=== PATIENT | female | born 1960 | race Caucasian/White ===

== ENCOUNTER 2017-02-10 23:03 | Emergency (ER) | payer OTHER ==
[~2017-02-10] VITALS: Ht 160 cm; Wt 87.0 kg
[~2017-02-10 23:03] MED LIST: HYDR-3498 PO; LEVO88TA PO; ONDA4TAB35 PO; synthroid PO
[2017-02-10 23:12] VITALS: Ht 160 cm; Wt 87.0 kg
[2017-02-11] MEDS ORDERED: METHYLPREDNISOLONE 125 MG INJ IM STA (06:10)
[2017-02-11] MEDS ORDERED: ACETAMINOPHEN 500 MG TAB PO STA (06:10)
[2017-02-11] MEDS ORDERED: ALBUTEROL 0.083% (NEB) 2.5 MG/3 ML AMP NEB STA ×2 (06:10→07:33)
--- NOTE | 2017-02-11 07:24 | RADRPT ---
PROCEDURE: XR Chest. CLINICAL INDICATION: Asthma exacerbation. Shortness of breath. TECHNIQUE: Single frontal chest x-ray. COMPARISON: Chest radiograph 12/31/2014. FINDINGS: The cardiomediastinal silhouette is unremarkable. There are bilateral low lung volumes with vascular crowding and mild bibasilar atelectasis. No pneum othorax, pleural effusion or consolidation is seen. There are multilevel mild degenerative changes of thoracic spine with decreased disk spaces and oste ophytosis. IMPRESSION: 1. Low lung volumes with compressive changes and mild bibasilar atelectasis. 2. Otherwise no acute cardiopulmonary abnormality. RPTAT: HFN .Chris Ward MD, Date Time Electronically viewed and signed by .Chris Ward MD, on 02/11/2017 07:24 .N/
--- NOTE | 2017-02-11 07:49 | ERD ---
ER Documentation Chief Complaint Date/Time DATE: 02/11/17 TIME: 07:49 Chief Complaint FEVER/HEADACHE X1 WEEK. STATES SINUS INFECTION. HPI This is a 56-year-old female without any relevant medical problems presenting to the emergency department with multiple complaints. Patient complaining of fever, headache, cough, shortness of breath for the past week. She denies any chest pain. Patient states that she has not taken medications today. She denies any vomiting or diarrhea. Denies any neuro deficit. ROS All systems reviewed and are negative except as per history of present illness. Medications Home Meds Active Scripts Amoxicillin/Potassium Clav (Amox-Clav 500-125 mg Tablet) 500-125 mg Tab, 1 TAB PO BID for 10 Days, TAB Prov:AURE GAITAN PA-C 02/11/17 Acetaminophen* (Tylenol*) 500 Mg Tab, 1000 MG PO Q6H Y for PAIN AND OR ELEVATED TEMP, #30 TAB Prov:AURE GAITAN PA-C 02/11/17 Prednisone* (Prednisone*) 20 Mg Tab, 40 MG PO DAILY for 4 Days, TAB Prov:AURE GAITAN PA-C 02/11/17 Albuterol Sulfate* (Proair HFA*) 8.5 Gm Hfa.aer.ad, 2 PUFF INH Q4H Y for WHEEZING AND SOB, #1 INHALER Prov:AURE GAITAN PA-C 02/11/17 Ondansetron Hcl* (Zofran* ODT) 4 mg -ODT Tab.disper, 4 MG PO Q6H Y for NAUSEA for 7 Days, TAB Prov:MELISA NIETO NP 08/25/14 Hydrocodone Bit-Acetaminophen* ([place]*) 5-325 Mg Tab, 1 TAB PO Q6H Y for PAIN for 7 Days, TAB Prov:MELISA NIETO NP 08/25/14 Levothyroxine Sodium* (Synthroid*) 88 Mcg Tab, 88 MCG PO DAILY@06 for 90 Days Prov:MELISA NIETO NP 08/25/14 Reported Medications [synthroid] No Conflict Check, 88 MCG PO DAILY 05/17/13 Allergies Allergies: Coded Allergies: No Known Allergy (Unverified , 04/26/14) PMhx/Soc History of Surgery: Yes (, THYROIDECTOMY, LEFT OVARY REMOVED) Anesthesia Reaction: No Hx Neurological Disorder: No Hx Respiratory Disorders: No Hx Cardiac Disorders: No Hx Psychiatric Problems: No Hx Miscellaneous Medical Probl: Yes (HYPOTHYROIDISM) Hx Alcohol Use: No Hx Substance Use: No Hx Tobacco Use: No Smoking Status: Never smoker Physical Exam Vitals Vital Signs Date Time Temp Pulse Resp B/P Pulse Ox O2 Delivery O2 Flow Rate FiO2 02/11/17 07:50 71 20 98 21 02/11/17 06:21 64 20 98 21 02/10/17 23:12 99.0 78 20 148/81 97 Physical Exam GENERAL: well-developed/well-nourished, in no apparent distress, non-toxic appearing HEAD: NC/AT, no swelling noted in frontal or maxillary areas EARS: bilateral tympanic membrane is intact without erythema or effusion NARES congested THROAT: oropharynx erythematous without exudates, no tonsil enlargement, post nasal drip EYES: Conjunctiva normal NECK: Supple, no lymphadenopathy PULM: Coarse breath sounds heard bilaterally with wheezing CV: Normal S1S2, RRR, good capillary refill GI: Soft, non-distended, normal bowel sounds, non-tender BACK: No midline tenderness, no masses EXT No clubbing, cyanosis, or edema NEURO: Alert and Orientated SKIN: Intact, normal turgor PSYCH: Normal mood and mentation Results 24 hrs Current Medications Medications (Trade) Dose Ordered Sig/Stacy Route PRN Reason Start Time Stop Time Status Last Admin Dose Admin Albuterol (Proventil 0.083% (Neb)) 5 mg ONCE STAT NEB 02/11/17 06:10 02/11/17 06:11 DC 02/11/17 06:18 Methylprednisolone Sodium Succinate (Solu-Medrol) 125 mg ONCE STAT IM 02/11/17 06:10 02/11/17 06:11 DC 02/11/17 06:34 Acetaminophen (Tylenol Tab) 1,000 mg ONCE STAT PO 02/11/17 06:10 02/11/17 06:11 DC 02/11/17 06:33 Albuterol (Proventil 0.083% (Neb)) 5 mg ONCE STAT NEB 02/11/17 07:33 02/11/17 07:35 DC 02/11/17 07:49 Procedures/MDM This is a 56-year-old female presenting to the emergency department complaining of fevers, nasal congestion, cough for 1 week likely due to a viral upper respiratory infection with bronchitis however patient will be empirically treated for bacterial sinusitis with Augmentin since she had more localized tenderness in her sinuses. I examination patient had wheezing and course breath sounds without any evidence of respiratory distress or pneumonia. RT was consulted and patient was given 2 treatments of albuterol with Solu-Medrol. Patient had improvement in symptoms. Patient has stable vital signs throughout the whole encounter and afebrile and stable for discharge. Chest x- ray did not show any evidence of infiltrates,radiologist stated low lung volumes with compressive changes and mild bibasilar atelectasis.. prescription for Augmentin for 10 days, pro-air, prednisone was provided. Discussed return to the ER for any worsening symptoms. Patient understands and agrees with the plan stable for discharge for home EKG: read and signed off by myself and Dr Rader Rate/Rhythm: Normal Sinus Rhythm 68bpm QRS, ST, T-waves: No changes consistent w/ acute ischemia Impression: No evidence of ischemia or arrhythmia Departure Diagnosis: Primary Impression: Acute sinusitis Additional Impression: Bronchitis Condition: Fair AURE GAITAN PA-C February 11, 2017 07:49
[2017-02-11] MEDS ORDERED: ALBU8.5H3 INH (07:51)
[2017-02-11] MEDS ORDERED: AZIT250T94 PO (07:51)
[2017-02-11] MEDS ORDERED: PRED20TA PO (07:51)
[2017-02-11] MEDS ORDERED: TYL500 PO (07:51)
[2017-02-11] MEDS ORDERED: AMOX1TAB9 PO (08:30)
== END 2017-02-11 08:34 | disposition home or self-care (01) ==
LOC: FTE 23:03
DX: J01.90 Acute sinusitis, unspecified (principal); J20.9 Acute bronchitis, unspecified; E03.9 Hypothyroidism, unspecified; R06.02 Shortness of breath
CPT/HCPCS: 71010; 93005; 94640; 94664; 96372; J2930; Z7502; Z7610

== ENCOUNTER → 2017-03-18 | Outpatient (CLI) | payer OTHER ==
[~2017-03-18] MED LIST changes: +ALBU8.5H3 INH; +ALBUTEROL 0.083% (NEB) 2.5 MG/3 ML AMP ONE; +AMOX1TAB9 PO; +PRED20TA PO; +TYL500 PO
== END | disposition home or self-care (01) ==
LOC: PUL 13:55
PROVIDERS: ATTEND Internal Medicine
DX: R06.02 Shortness of breath (principal)
CPT/HCPCS: 94060; 94726; 94729

== ENCOUNTER 2017-07-28 22:58 | Emergency (ER) | payer OTHER ==
[~2017-07-28] VITALS: Ht 165.1 cm; Wt 84.5 kg
[~2017-07-28 22:58] MED LIST changes: -ALBUTEROL 0.083% (NEB) 2.5 MG/3 ML AMP ONE
[2017-07-28 23:48] VITALS: Ht 165.1 cm; Wt 84.5 kg
[2017-07-29] MEDS ORDERED: KETOROLAC 30 MG INJ IM STA (04:19)
[2017-07-29] MEDS ORDERED: KETOROLAC 30 MG INJ ONE (04:21)
--- NOTE | 2017-07-29 05:06 | RADRPT ---
PROCEDURE: Right ankle. CLINICAL INDICATION: Pain. TECHNIQUE: Three views including AP, lateral and oblique views were performed. COMPARISON: None. FINDINGS: There is no fracture, dislocation or bone destruction. The ankle mortise is within normal limits. Bone mineralization is within normal limits. There is no radiopaque foreign body or abnormal calcif ication. There are dorsal and plantar calcaneal spurs. IMPRESSION: No evidence of fracture. Calcaneal spurs. .Oscar Ayala MD, Date Time Electronically viewed and signed by .Oscar Ayala MD, on 07/29/2017 05:06 .T/
--- NOTE | 2017-07-29 05:07 | RADRPT ---
PROCEDURE: Right knee. CLINICAL INDICATION: Pain. TECHNIQUE: Three views including AP, lateral and oblique views of the right knee were obtained. The images reviewed on a PACS workstation. COMPARISON: None. FINDINGS: There is no fracture, dislocation or bone destruction. There is no significant joint space narrowin g or effusion. There is spurring of the tibial spine. There are tiny marginal osteophytes present. T here is spurring of the patella. Bone mineralization is within normal limits. There is no radiopaqu e foreign body or abnormal calcification. IMPRESSION: No evidence of fracture. .Oscar Ayala MD, Date Time Electronically viewed and signed by .Oscar Ayala MD, on 07/29/2017 05:06 .T/
--- NOTE | 2017-07-29 05:25 | ERD ---
ER Documentation Chief Complaint Chief Complaint right knee oan x 3 days, +swelling Denies injury. Seen by urgent care today HPI 56-year-old female with a history of sciatica presents the emergency department for complaints of right-sided knee pain 3 days. Patient states that she tripped over a telephone cord twisted her right knee, then developed gradually worsening pain with swelling. She notes associated right-sided ankle pain and swelling. She states her knee pain is currently an 8 out of 10 throbbing pain which radiates up her right thigh to her posterior buttocks. She states similar pain previously due to sciatica. She denies any recent immobilization, surgery, cancer, chest pain or shortness of breath. She states she is able to ambulate but walking aggravates the pain. He denies fever, chills, nausea, vomiting, diarrhea, abdominal pain, flank pain, dysuria, hematuria or vaginal discharge. ROS All systems reviewed and are negative except as per history of present illness. Medications Home Meds Active Scripts Prednisone* (Prednisone*) 20 Mg Tab, 40 MG PO DAILY for 4 Days, TAB Prov:PAZ CONTE PA-C 07/29/17 Hydrocodone/Acetaminophen ([place] 5-325 Tablet) 1 Each Tablet, 1 TAB PO Q6H Y for PAIN, #10 TAB Prov:PAZ CONTE PA-C 07/29/17 Naproxen* (Naprosyn*) 500 Mg Tablet, 500 MG PO BID Y for PAIN AND/OR INFLAMMATION, #30 TAB Prov:PAZ CONTE PA-C 07/29/17 Amoxicillin/Potassium Clav (Amox-Clav 500-125 mg Tablet) 500-125 mg Tab, 1 TAB PO BID for 10 Days, TAB Prov:AURE GAITAN PA-C 02/11/17 Acetaminophen* (Tylenol*) 500 Mg Tab, 1000 MG PO Q6H Y for PAIN AND OR ELEVATED TEMP, #30 TAB Prov:AURE GAITAN PA-C 02/11/17 Prednisone* (Prednisone*) 20 Mg Tab, 40 MG PO DAILY for 4 Days, TAB Prov:AURE GAITAN PA-C 02/11/17 Albuterol Sulfate* (Proair HFA*) 8.5 Gm Hfa.aer.ad, 2 PUFF INH Q4H Y for WHEEZING AND SOB, #1 INHALER Prov:AURE GAITAN PA-C 02/11/17 Ondansetron Hcl* (Zofran* ODT) 4 mg -ODT Tab.disper, 4 MG PO Q6H Y for NAUSEA for 7 Days, TAB Prov:MELISA NIETO NP 08/25/14 Hydrocodone Bit-Acetaminophen* ([place]*) 5-325 Mg Tab, 1 TAB PO Q6H Y for PAIN for 7 Days, TAB Prov:MELISA NIETO NP 08/25/14 Levothyroxine Sodium* (Synthroid*) 88 Mcg Tab, 88 MCG PO DAILY@06 for 90 Days Prov:MELISA NIETO NP 08/25/14 Reported Medications [synthroid] No Conflict Check, 88 MCG PO DAILY 05/17/13 Allergies Allergies: Coded Allergies: No Known Allergy (Unverified , 04/26/14) PMhx/Soc History of Surgery: Yes (, THYROIDECTOMY, LEFT OVARY REMOVED) Anesthesia Reaction: No Hx Neurological Disorder: No Hx Respiratory Disorders: No Hx Cardiac Disorders: No Hx Psychiatric Problems: No Hx Miscellaneous Medical Probl: Yes (HYPOTHYROIDISM) Hx Alcohol Use: No Hx Substance Use: No Hx Tobacco Use: No Smoking Status: Never smoker Physical Exam Vitals Physical Exam Const:Well-developed, well-nourished, in mild distress Head: Atraumatic Eyes: Normal Conjunctiva ENT: Normal External Ears, Nose and Mouth. Neck: Full range of motion..~ No meningismus. Resp: Clear to auscultation bilaterally Cardio: Regular rate and rhythm, no murmurs Abd: Soft, non tender, non distended. Normal bowel sounds Skin: No petechiae or rashes Back: No midline or flank tenderness Ext: Mild, non-erythematous edema diffusely over the anterior right knee. No ecchymosis, surface trauma, or bony deformity. Diffuse swelling with slight ecchymosis across the lateral right ankle. Patient without crepitus at the knee or ankle. Full range of motion at knee and ankle actively and passively. Patient able to fully flex and extend that knee. Negative anterior, posterior drawer sign. Collateral ligaments without laxity. Distal sensation intact to light touch. Pedal pulses equal. Patient able to bear full weight and ambulate however reports pain. No erythema of the lower extremity. No calf swelling. Neur: Awake and alert Psych: Normal Mood and Affect Results 24 hrs Current Medications Medications (Trade) Dose Ordered Sig/Stacy Route PRN Reason Start Time Stop Time Status Last Admin Dose Admin Ketorolac Tromethamine (Toradol) 30 mg ONCE STAT IM 07/29/17 04:19 07/29/17 04:21 DC 07/29/17 04:27 Ketorolac Tromethamine (Toradol) 30 mg STK-MED ONCE .ROUTE 07/29/17 04:21 07/29/17 04:22 DC Acetaminophen/ Hydrocodone Bitart ([place] (5/325)) 1 tab ONCE ONCE PO 07/29/17 06:00 07/29/17 06:01 DC 07/29/17 05:54 Ondansetron HCl (Zofran Odt) 4 mg ONCE STAT ODT 07/29/17 05:44 07/29/17 05:45 DC 07/29/17 05:54 Procedures/MDM PROCEDURE: Right knee. CLINICAL INDICATION: Pain. TECHNIQUE: Three views including AP, lateral and oblique views of the right knee were obtained. The images reviewed on a PACS workstation. COMPARISON: None. FINDINGS: There is no fracture, dislocation or bone destruction. There is no significant joint space narrowing or effusion. There is spurring of the tibial spine. There are tiny marginal osteophytes present. There is spurring of the patella. Bone mineralization is within normal limits. There is no radiopaque foreign body or abnormal calcification. IMPRESSION: No evidence of fracture. .Oscar Ayala MD, Date Time Electronically viewed and signed by .Oscar Ayala MD, MD on 07/29/2017 05:06 .T/ CC: PAZ CONTE PA-C PROCEDURE: Right ankle. CLINICAL INDICATION: Pain. TECHNIQUE: Three views including AP, lateral and oblique views were performed. COMPARISON: None. FINDINGS: There is no fracture, dislocation or bone destruction. The ankle mortise is within normal limits. Bone mineralization is within normal limits. There is no radiopaque foreign body or abnormal calcification. There are dorsal and plantar calcaneal spurs. IMPRESSION: No evidence of fracture. Calcaneal spurs. .Oscar Ayala MD, MD Date Time Electronically viewed and signed by .Oscar Ayala MD, MD on 07/29/2017 05:06 .T/ CC: PAZ CONTE PA-C This is a 56-year-old female with a history of sciatica who presents to the emergency department for complaints of right-sided knee and ankle pain after twisting her leg 3 days ago. Physical exam with evidence of mild swelling at the knee and ankle. Patient neurovascularly intact, has full range of motion, and able to bear full weight. X-rays of the knee and ankle were negative for acute fracture or dislocation. At this time low suspicion for acute DVT or PE as patient does not present with high risk factors and there is no swelling of the calf or erythema of the lower extremity. Patient denied chest pain or shortness of breath. She also denied fever or chills. I did careers counsellor her on signs and symptoms of DVT and PE and discussed strict return precautions. Patient requested to have an MRI while in the emergency department today. I educated her on the appropriate resources we were able to used to diagnose an emergency joint process. Patient agreed to x-rays, pain medicine and referral to applied behavior science specialist if symptoms should persist. Resources were provided and patient was placed in a knee immobilizer. I have recommended anti-inflammatory medication and rest. She received pain medication while in the emergency department and reports improvement of symptoms. Based on patient's history of present illness and physical examination the decision was made to discharge. The patient was re-evaluated after ED treatment and stabilizing measures, and symptoms have improved. There is no evidence of life threatening injuries or illnesses at this time. On re-examination, patient resting in no distress, stable vital signs, reports feeling better and safe for discharge with outpatient follow up with PMD in 1-2 days. Patient given return precautions. Departure Diagnosis: Primary Impression: Knee pain Chronicity: acute Laterality: right Qualified Code: M25.561 - Acute pain of right knee Additional Impression: Knee injury Encounter type: initial encounter Laterality: right Qualified Code: S89.91XA - Injury of right knee, initial encounter PAZ CONTE PA-C Jul 29, 2017 05:25
[2017-07-29] MEDS ORDERED: HYDR-906 PO (05:38)
[2017-07-29] MEDS ORDERED: PRED20TA PO (05:38)
[2017-07-29] MEDS ORDERED: NAPR-260 PO (05:38)
[2017-07-29] MEDS ORDERED: ONDANSETRON (ODT) 4 MG TAB ODT STA (05:44)
[2017-07-29] MEDS ORDERED: HYDROCODONE/APAP (5/325) TAB PO ONE (06:00)
== END 2017-07-29 05:54 | disposition home or self-care (01) ==
LOC: FTE 22:58
DX: S89.91XA Unspecified injury of right lower leg, initial encounter (principal); X50.9XXA Other and unspecified overexertion or strenuous movements or postures, initial encounter; Y92.9 Unspecified place or not applicable
CPT/HCPCS: 29505; 73562; 73610; 96372; 99284; J1885